=== PATIENT | female | born 1975 | race Caucasian/White ===

== ENCOUNTER 2021-03-07 12:39 | Emergency (ER) | payer MEDICAID, SELFPAY ==
--- NOTE | 2021-03-07 12:54 | XR_ITS ---
PROCEDURE INFORMATION: Exam: XR Right Knee Exam date and time: 03/07/2021 12:54 PM Age: 46 years old Clinical indication: Pain; Knee; Right TECHNIQUE: Imaging protocol: XR Right knee. Views: 3 views. COMPARISON: No relevant prior studies available. FINDINGS: Bones/joints: There are mild degenerative changes of the knee joint, predominantly involving the medial joint compartment. There is no evidence of acute fracture. There is no evidence of joint malalignment or dislocation. Cystic changes present within the lateral aspect of the proximal tibia. Soft tissues: There are no soft tissue masses or fluid collections. IMPRESSION: 1. There are mild degenerative changes of the knee joint, predominantly involving the medial joint compartment. 2. No evidence of acute fracture. 3. No evidence of acute dislocation.
[2021-03-07 13:35] VITALS: BP 123/60; PULSE 85; RESP 19; TEMP 36.8; O2SAT 98; BMI 47.5
--- NOTE | 2021-03-07 14:01 | HMH.EDUTC ---
[facility] Disposition Clinical Impression: Knee sprain Qualifiers: Encounter type: initial encounter Involved ligament of knee: unspecified ligament Laterality: right Qualified Code(s): S83.91XA - Sprain of unspecified site of right knee, initial encounter Disposition: Home, Self-Care Condition on Discharge: Good Instructions: DI for Knee Pain, DI for Knee Sprain, How to Use Crutches Additional Instructions: *weight bearing as tolerated *RICE, Rest the extremity, Ice 15-20 minutes 3-4 times daily, Compress- wear the sarthak wrap as discussed as much as possible to help reduce swelling and pain, Elevate the extremity when at rest *Sarthak wrap is for support and help control swelling, use it except in the shower. Be sure that is not to tight but not to loose either *Elevate when resting *Ibuprofen 600-800mg every 6-8 hours as needed for pain an inflammation. If need something more can take Tylenol in between doses of Ibuprofen to help Immediately follow up with your family doctor for new or worsening of symptoms, or no noticeable improvement over the next 3-5 days Follow up with your Orthopedic Physician for further evaluation Follow up with your Family Doctor if no improvement Prescriptions: Etodolac 200 mg PO Q8HP PRN #12 cap PRN Reason: Moderate Pain Transmission Status: Pending to [facility] #[id number] Referrals: Provider,Referral, [Primary Care Provider] - As needed Time of Disposition: 14:25 Medical Decision Making - Jarad Inquiry Pt receiving controlled substance: No Jarad was queried for this patient: No Vital Signs: 03/07/21 13:35 Temperature 98.2 F Temperature Source Oral Pulse Rate [Right Brachial] 85 Respiratory Rate 19 Blood Pressure [Right Arm] 123/60 Blood Pressure Mean [Right Arm] 81 Blood Pressure Source [Right Arm] Automatic Cuff Blood Pressure Position [Right Arm] Sitting 02 Sat by Pulse Oximetry 98 Oxygen Delivery Method Room Air Orders (Tests/Meds): ORDERS Category Date Time Status XR knee RT 3V Stat Exams 03/07/21 12:54 Taken - Radiology Data #1 Image(s): Knee Image Reviewed: Yes I reviewed the patient's radiology image w/the ED provider Preliminary Findings: No Fracture Seen Discussed with ED physician no acute appears chronic Medical Decision Narrative: Patient states that she has knee immobilizer at home and crutches States that she feels like she pulled something [facility] HPI - General Stated complaint: pain in right knee Time Seen by Provider: 03/07/21 14:01 Mode of Arrival: Ambulatory Source of Information: Patient Limitations: No Limitations Description of Symptoms (Recalled from Triage Doc. by RN): PATIENT C/O RIGHT KNEE PAIN X 2 DAYS. STATES SHE THINKS SHE PULLED SOMETHING WALKING UP STAIRS HEENT Symptoms (Recalled from RN notes): No Resp Symptoms (Recalled from RN notes): No Skin Symptoms (Recalled from RN notes): No MS Symptoms (Recalled from RN notes): No Functional Status (Recalled from RN notes): WNL - History of Present Illness Provider Complaint: Patient states that she has been seeing Orthopedics and was told that she would have to have knee replacement in the next year or so States that she was walking on stairs a couple days ago and she twisted her knee States that ever since she has been having pain in the side of her knee and calf area like she is having charley horse and hurts when she walks States that she wasnt sure if she may have messed something up - Related Data Home Medications Medication Instructions Recorded Confirmed Buprenorphine HCl/Naloxone HCl 1.5 tab SL DAILY 03/07/21 03/07/21 [Suboxone 8mg/2mg ODT] Escitalopram Oxalate [Lexapro] 10 mg PO DAILY 03/07/21 03/07/21 Furosemide [Lasix 40mg tab] 40 mg PO DAILY 03/07/21 03/07/21 Previous Rx's Medication Instructions Recorded Etodolac 200 mg PO Q8HP PRN #12 cap 03/07/21 Allergies Allergy/AdvReac Type Severity Reaction Status Date / Time duloxetine [From
[2021-03-07 14:28] VITALS: BP 123/60; PULSE 85; RESP 19; TEMP 36.8; O2SAT 98
== END 2021-03-07 14:32 | disposition home or self-care (01) ==
PROVIDERS: Emergency Provider Nurse Practitioner
DX: S83.91XA Sprain of unspecified site of right knee, initial encounter (principal); X50.1XXA Overexertion from prolonged static or awkward postures, initial encounter
CPT/HCPCS: 73562; 99202; G0463

== ENCOUNTER 2022-10-27 19:15 | Emergency (ER) | payer MEDICAID, SELFPAY ==
[2022-10-27 19:28] VITALS: BP 106/57; PULSE 102; RESP 18; TEMP 36.6; O2SAT 90; BMI 46.3
[2022-10-27 19:30] VITALS: BP 106/57; PULSE 109; O2SAT 90
[2022-10-27 19:31] VITALS: BMI 33.6
[2022-10-27 19:56] LABS: Chloride 94 mmol/L (98-107)
[2022-10-27 19:57] LABS: Sodium 133 mmol/L (136-145)
[2022-10-27 19:58] LABS: Basophils # 0.1 K/mm3 (0-0.2); Basophils % 1.4 % (0.1-2.0); Eosinophils % 0.3 % (0.1-12.0); Hematocrit 50.9 % (37.0-47.0); Hemoglobin 17.1 g/dL (12.2-16.2); Lymphocytes # 2.5 K/mm3 (0.7-4.5); Mean Corpuscular HGB Conc 33.6 g/dL (31.8-35.4); Mean Corpuscular Hemoglobin 28.8 pg (27.0-31.2); Mean Corpuscular Volume 85.7 fl (81-99); Mean Platelet Volume 8.1 fl (7.4-10.4); Monocytes # 0.3 K/mm3 (0.1-1.0); Neutrophils # 7.5 K/mm3 (1.8-7.8); Neutrophils % 71.4 % (37.0-80.0); Platelet Count 480 K/mm3 (142-424); Red Blood Count 5.93 M/mm3 (4.20-5.40); Red Cell Distribution Width 15.2 % (11.5-17.5); White Blood Count 10.4 K/mm3 (4.8-10.8)
[2022-10-27 19:59] LABS: Amylase 44 U/L (30-110); Blood Urea Nitrogen 15 mg/dl (7-17); Creatinine Clearance Estimated 117 mL/min (50-200); Estimated Glomerular Filt Rate 78 ml/min (>60); GFR (African American) 94 ML/MIN (>60)
[2022-10-27 20:00] VITALS: BP 129/76; PULSE 89; O2SAT 91
[2022-10-27 20:00] LABS: Alanine Aminotransferase 52 U/L (12-78); Albumin Level 4.3 g/dl (3.5-5.0); Albumin/Globulin Ratio 1.3 (1.1-1.8); Alkaline Phosphatase 91 U/L (38-126); Anion Gap 13.9 mEq/L (5-15); Aspartate Amino Transferase 72 U/L (14-36); Bilirubin,Total 0.6 mg/dl (0.2-1.3); Calcium 8.4 mg/dl (8.4-10.2); Carbon Dioxide 28 mmol/L (22.0-30.0); Globulin 3.4 g/dL (1.3-3.2); Glucose 183 mg/dl (74-100); Lipase 38 U/L (23-300); Total Protein,Serum 7.7 g/dl (6.3-8.2)
[2022-10-27 20:01] LABS: Potassium 2.9 mmoL/L (3.5-5.1)
--- NOTE | 2022-10-27 20:01 | PC.NURSE ---
Dr. Quesada notified of critical potassium
--- NOTE | 2022-10-27 20:20 | PC.NURSE ---
Pt provided with ice water
--- NOTE | 2022-10-27 20:21 | HMH.EDALLER ---
Discharge Plan Disposition Patient Disposition: Home, Self-Care Chief Complaint: Allergic Reaction Prescriptions Prescriptions: No Action ondansetron 4 mg tablet,disintegrating 4 mg PO Q4HP PRN (Reason: Nausea) furosemide 40 MG tablet 40 mg PO DAILY escitalopram oxalate 10 MG tablet 10 mg PO DAILY buprenorphine-naloxone 1 EACH tablet, sublingual 1.5 tab SL DAILY ibuprofen 600 MG tablet 600 mg PO Q6HP PRN (Reason: Moderate Pain) Qty: 20 0RF Referrals Follow up/Referrals: Aisha Weber [Primary Care Provider] - See instructions Clinical Impressions Clinical Impression: Allergic reaction, Urticaria Instructions Patient Instructions: DI for General Allergic Reactions Discharge ED Provider: Sangita (ED)Terence Allergic React/Insect Bite HPI General Chief complaint: Allergic Reaction Stated complaint: Allergic Reaction Time Seen by Provider: 10/27/22 20:05 Mode of Arrival - ED Triage: EMS Source of Information: Patient, EMS and Medical Record Limitations: No Limitations History of Present Illness HPI narrative: this wf with gb surg at [facility] and released at 10 am and dev feet burning and itchy and then hive at 1800 after motrin - gave herself epi pen and called 911 - no meds per squad and no tongue swelling or breathing issues complaint: allergic reaction Onset (ago): hour(s) Exposure: other (uncertain - occurred after motrin but had surg today) Symptoms: rash and itching Treatment prior to arrival: epinephrine Allergies Allergy/AdvReac Type Severity Reaction Status Date / Time duloxetine [From Cymbalta] Allergy Verified 03/07/21 13:42 Previous Allergic Reaction History: other (hives ) Severity: moderate Related Data Home Medications Medication Instructions Recorded Confirmed buprenorphine 8 mg-naloxone 2 mg 1.5 tab SL DAILY ADDICTION 03/07/21 10/27/22 sublingual tablet escitalopram oxalate 10 mg tablet 10 mg PO DAILY Depression 03/07/21 10/27/22 furosemide 40 mg tablet 40 mg PO DAILY Fluid 03/07/21 10/27/22 ondansetron 4 mg disintegrating 4 mg PO Q4HP PRN Nausea 10/27/22 10/27/22 tablet Previous Rx's Medication Instructions Recorded ibuprofen 600 mg tablet 600 mg PO Q6HP PRN Moderate Pain 03/10/21 #20 tabs PFSH PFSH Disclaimer: The information contained in this section may have been updated after the patient was seen, as this information can be updated by other users. Social History Smoking Status: Current every day smoker alcohol intake: never current occupational status: other Travel in the last 8 weeks: None ROS Obtained: Yes All systems reviewed & no additional complaints except as documented Physical Exam General General appearance: alert and in no apparent distress Head Head exam: normocephalic Eye Eye exam: Present PERRL and EOMI ENT ENT exam: Present normal oropharynx Neck Neck exam: Present trachea midline Respiratory Respiratory exam: Present normal lung sounds bilaterally; Absent respiratory distress Cardiovascular Cardiovascular exam: Present regular rate Extremities Exam Extremities exam: Absent calf tenderness Neurological Exam Neurological exam: Present alert, oriented X3 and CN II-XII intact; Absent motor sensory deficit Psychiatric Psychiatric exam: Present normal affect Skin Skin exam: Present rash Medical Decision Making Medical Records Medical records reviewed: Yes I reviewed the patient's medical records. Jarad Inquiry Pt receiving controlled substance: No Vital Signs: 10/27/22 19:28 Temperature 98 F Temperature Source Oral Pulse Rate [Apical] 102 H Respiratory Rate 18 Blood Pressure [Right Arm] 106/57 L Blood Pressure Mean [Right Arm] 73 Blood Pressure Source [Right Arm] Automatic Cuff Blood Pressure Position [Right Arm] Sitting 02 Sat by Pulse Oximetry 90 L Oxygen Delivery Method Room Air Lab Data Lab results reviewed: Yes I reviewed the patient's lab results. Lab
[2022-10-27 20:30] VITALS: BP 118/62; PULSE 95; O2SAT 91
[2022-10-27 21:01] VITALS: BP 120/63; PULSE 92; RESP 18; TEMP 36.6; O2SAT 92
== END 2022-10-27 21:04 | disposition home or self-care (01) ==
PROVIDERS: Emergency Provider Emergency Medicine; PCP Nurse Practitioner Family
DX: T39.395A Adverse effect of other nonsteroidal anti-inflammatory drugs [NSAID], initial encounter (principal); L50.0 Allergic urticaria; F17.200 Nicotine dependence, unspecified, uncomplicated
CPT/HCPCS: 80053; 82150; 83690; 85025; 96361; 96374; 96375; 99284; 99285

== ENCOUNTER 2022-10-30 14:05 | Emergency (ER) | payer MEDICAID, SELFPAY ==
[2022-10-30 14:14] VITALS: BMI 43.0
--- NOTE | 2022-10-30 14:15 | CT_ITS ---
PROCEDURE INFORMATION: Exam: CT Abdomen And Pelvis With Contrast Exam date and time: 10/30/2022 2:51 PM Age: 47 years old Clinical indication: Abdominal pain; Generalized; Prior surgery; Surgery date: 3-7 days post-operative; Surgery type: Had gallbladder surgery 10/27/22- extreme pain started today; Additional info: Abd pain TECHNIQUE: Imaging protocol: Computed tomography of the abdomen and pelvis with contrast. Radiation optimization: All CT scans at this facility use at least one of these dose optimization techniques: automated exposure control; mA and/or kV adjustment per patient size (includes targeted exams where dose is matched to clinical indication); or iterative reconstruction. Contrast material: ISOVUE; Contrast volume: 75 ml; Contrast route: IV; REPORTING DATA: Count of CT and Cardiac NM exams in prior 12 months: This patient has received 0 known CTs and 0 known cardiac nuclear medicine studies in the 12 months prior to the current study. COMPARISON: No relevant prior studies available. FINDINGS: Liver: Normal. No mass. Gallbladder and bile ducts: Postoperative changes status post cholecystectomy. Small complex fluid collection within gallbladder fossa. Pancreas: Normal. No ductal dilation. Spleen: Normal. No splenomegaly. Adrenal glands: Normal. No mass. Kidneys and ureters: Normal. No hydronephrosis. Stomach and bowel: Unremarkable. No obstruction. No mucosal thickening. Appendix: No evidence of appendicitis. Intraperitoneal space: Unremarkable. No free air. No significant fluid collection. Vasculature: Unremarkable. No abdominal aortic aneurysm. Lymph nodes: Unremarkable. No enlarged lymph nodes. Urinary bladder: Unremarkable as visualized. Reproductive: Unremarkable as visualized. Bones/joints: Unremarkable. No acute fracture. Soft tissues: Unremarkable. IMPRESSION: Likely postoperative changes with small residual fluid collection gallbladder fossa. If symptoms worsened consider repeat scan to rule out bile leak.
[2022-10-30 14:22] VITALS: BP 172/98; PULSE 99; RESP 16; TEMP 36.5; O2SAT 98; BMI 43.0
[2022-10-30 14:28] LABS: Basophils # 0.1 K/mm3 (0-0.2); Basophils % 0.9 % (0.1-2.0); Eosinophils # 0.2 K/mm3 (0.0-0.4); Eosinophils % 1.3 % (0.1-12.0); Hematocrit 42.9 % (37.0-47.0); Hemoglobin 14.2 g/dL (12.2-16.2); Lymphocytes % 22.6 % (10-50); Mean Corpuscular HGB Conc 33.2 g/dL (31.8-35.4); Mean Corpuscular Hemoglobin 28.1 pg (27.0-31.2); Mean Corpuscular Volume 84.7 fl (81-99); Mean Platelet Volume 8.1 fl (7.4-10.4); Monocytes # 0.8 K/mm3 (0.1-1.0); Monocytes % 6.3 % (1.7-9.3); Neutrophils # 9.3 K/mm3 (1.8-7.8); Neutrophils % 68.9 % (37.0-80.0); Platelet Count 298 K/mm3 (142-424); Red Blood Count 5.06 M/mm3 (4.20-5.40); White Blood Count 13.4 K/mm3 (4.8-10.8)
[2022-10-30 14:31] VITALS: BP 132/92; PULSE 86; RESP 20; O2SAT 95
[2022-10-30 14:31] LABS: Alanine Aminotransferase 37 U/L (12-78); Albumin Level 4.2 g/dl (3.5-5.0); Albumin/Globulin Ratio 1.4 (1.1-1.8); Alkaline Phosphatase 86 U/L (38-126); Aspartate Amino Transferase 33 U/L (14-36); Bilirubin,Total 0.8 mg/dl (0.2-1.3); Blood Urea Nitrogen 13 mg/dl (7-17); Calcium 8.9 mg/dl (8.4-10.2); Carbon Dioxide 36 mmol/L (22.0-30.0); Chloride 95 mmol/L (98-107); Creatinine Clearance Estimated 94 mL/min (50-200); Estimated Glomerular Filt Rate 108 ml/min (>60); GFR (African American) 131 ML/MIN (>60); Glucose 125 mg/dl (74-100); Lipase 29 U/L (23-300); Sodium 134 mmol/L (136-145); Total Protein,Serum 7.2 g/dl (6.3-8.2)
--- NOTE | 2022-10-30 14:31 | HMH.EDGENADL ---
Discharge Plan Disposition Condition: Fair Chief Complaint: Abdominal Pain Prescriptions Prescriptions: No Action ondansetron 4 mg tablet,disintegrating 4 mg PO Q4HP PRN (Reason: Nausea) furosemide 40 MG tablet 40 mg PO DAILY escitalopram oxalate 10 MG tablet 10 mg PO DAILY buprenorphine-naloxone 1 EACH tablet, sublingual 1.5 tab SL DAILY ibuprofen 600 MG tablet 600 mg PO Q6HP PRN (Reason: Moderate Pain) Qty: 20 0RF Referrals Follow up/Referrals: Aisha Weber [Primary Care Provider] - See instructions Clinical Impressions Clinical Impression: Acute epigastric pain, Acute hypokalemia Discharge ED Provider: Damon Leon General Adult HPI General Chief complaint: Abdominal Pain Stated complaint: abd pain post op [id number] Time Seen by Provider: 10/30/22 14:25 Mode of Arrival: Ambulatory Source of Information: Patient and Spouse Limitations: No Limitations Description of Symptoms (Recalled from ER Triage Doc. by RN): pt comes in with post op pain complaints. pt had gallbladder removed 10/27. pt reports that the pain began this am. pt took 2 gas pills and a shot of pepto at home with no relief. pt reports little gas and no bm since surgery. History of Present Illness HPI narrative: The patient is status post cholecystectomy performed at [facility] on 10/27/2022, Dr. Diaz. She had been doing well until today. Complains of epigastric pain. She describes the pain as pressure in her mid epigastrium that has been present since she awakened this morning. It has been steadily worsening throughout the day. She has not eaten today. Denies vomiting. She had a small bowel movement yesterday, no diarrhea. She had a small bowel movement yesterday. No fever. No chest pain or shortness of breath. She is on Suboxone, but states she has not taken any since her surgery because she has been afraid to take it. She is not on any other pain medication. Related Data Home Medications Medication Instructions Recorded Confirmed buprenorphine 8 mg-naloxone 2 mg 1.5 tab SL DAILY ADDICTION 03/07/21 10/27/22 sublingual tablet escitalopram oxalate 10 mg tablet 10 mg PO DAILY Depression 03/07/21 10/27/22 furosemide 40 mg tablet 40 mg PO DAILY Fluid 03/07/21 10/27/22 ondansetron 4 mg disintegrating 4 mg PO Q4HP PRN Nausea 10/27/22 10/27/22 tablet Previous Rx's Medication Instructions Recorded ibuprofen 600 mg tablet 600 mg PO Q6HP PRN Moderate Pain 03/10/21 #20 tabs Allergies Allergy/AdvReac Type Severity Reaction Status Date / Time duloxetine [From Cymbalta] Allergy Verified 03/07/21 13:42 [facility] Disclaimer: The information contained in this section may have been updated after the patient was seen, as this information can be updated by other users. Social History Smoking Status: Current every day smoker alcohol intake: never current occupational status: other Travel in the last 8 weeks: None ROS Obtained: Yes Systems reviewed as appropriate & no additional complaints except as documented Constitutional Constitutional: Denies fever(s), Denies headache(s) and Denies weakness ENT Ears, Nose, Mouth, and Throat: Denies headache(s), Denies nasal discharge and Denies sore throat Cardiovascular Cardiovascular: Denies chest pain Respiratory Respiratory: Denies shortness of breath and Denies cough Gastrointestinal Gastrointestingal: Reports abdominal pain; Denies constipation, diarrhea or vomiting Genitourinary Female Genitourinary: Denies difficulty voiding, Denies dysuria and Denies flank pain Musculoskeletal Musculoskeletal: Denies numbness Neurologic Neurologic: Denies headache(s), Denies numbness and Denies weakness Physical Exam General General appearance: alert Comment: Sitting upright in a chair, states she cannot get into the bed for examination due to her pain. Appears uncomfortable, softly moaning. Head Head exam: atraumatic and normoc
--- NOTE | 2022-10-30 14:54 | PC.NURSE ---
arrived back to room from radiology
--- NOTE | 2022-10-30 15:01 | ECG_ITS ---
APPROVED REPORT Exam: Resting ECG HR:89 bpm ECG Measurements Heart Rate 89 AXES IL 170 P 71 QRSd 95 QRS 67 QT 351 T 54 QTc 398 Conclusion SINUS RHYTHM NORMAL ECG UNCONFIRMED REPORT Electronically signed by : Rick Cisse MD 10/30/2022 21:06:20
[2022-10-30 15:03] VITALS: BP 151/119; PULSE 83; RESP 19; O2SAT 96
--- NOTE | 2022-10-30 15:05 | PC.NURSE ---
checked on pt states her hip down to her feet hurting, adjusted bed to see if it could make her anymore comfortable, call light at bedside
--- NOTE | 2022-10-30 15:09 | PC.NURSE ---
took ekg, patient wasnt able to tolerate laying in bed, got back up to chair,nurse notified but she already gave pain med, @ bs
[2022-10-30 15:22] LABS: Troponin I < 0.01 ng/ml (0.00-0.034)
--- NOTE | 2022-10-30 15:35 | PC.NURSE ---
has been paged from Psych[facility]
--- NOTE | 2022-10-30 15:41 | PC.NURSE ---
on the phone with from [facility]
--- NOTE | 2022-10-30 15:57 | PC.NURSE ---
pt pacing floor complaing hurting again after second dose of pain med, notified nurses in ed, waiting to speak to er md(in a pt room)
--- NOTE | 2022-10-30 16:02 | PC.NURSE ---
calling to [facility] to speak to hospitalist about transferring pt
--- NOTE | 2022-10-30 16:13 | PC.NURSE ---
quiana myles @ bedside getting covid swab for pt incase of transfer
--- NOTE | 2022-10-30 16:30 | PC.NURSE ---
india asencio speaking to [facility] hospitalist
[2022-10-30 16:39] LABS: Coronavirus 19, PCR Not Detected (NotDetected); Influenza A, PCR Not Detected (NotDetected); Influenza B, PCR Not Detected (NotDetected)
--- NOTE | 2022-10-30 17:13 | PC.NURSE ---
pt has been accepted to [facility] she will be going to room # 4a
--- NOTE | 2022-10-30 17:20 | PC.NURSE ---
report called to shazia medina jorge a
[2022-10-30 17:30] VITALS: BP 130/87; PULSE 83; RESP 19; TEMP 36.5; O2SAT 96
== END 2022-10-30 17:35 | disposition home or self-care (01) ==
PROVIDERS: Emergency Provider Emergency Medicine; PCP Nurse Practitioner Family
DX: R10.13 Epigastric pain (principal); E87.6 Hypokalemia; F17.210 Nicotine dependence, cigarettes, uncomplicated
CPT/HCPCS: 74177; 80053; 83690; 84484; 85025; 93005; 96374; 96375; 96376; 99285; C9803; J2405; Q9967; U0003; U0005

== ENCOUNTER 2023-09-03 20:47 | Emergency (ER) | payer MEDICAID, SELFPAY ==
--- NOTE | 2023-09-03 20:50 | ED_ITS ---
Discharge Plan Disposition Patient Disposition: Home, Self-Care Condition: Good Prescriptions Prescriptions: New ondansetron 4 mg tablet,disintegrating 4 mg PO Q8H PRN (Reason: nausea and vomiting) 4 Days Qty: 12 0RF [id number] [Bromfed DM] 2-30-10 mg/5 mL syrup 5 ml PO Q6H PRN (Reason: cold symptoms) Qty: 118 0RF No Action ondansetron 4 mg tablet,disintegrating 4 mg PO Q4HP PRN (Reason: Nausea) furosemide 40 MG tablet 40 mg PO DAILY escitalopram oxalate 10 MG tablet 10 mg PO DAILY buprenorphine-naloxone 1 EACH tablet, sublingual 1.5 tab SL DAILY ibuprofen 600 MG tablet 600 mg PO Q6HP PRN (Reason: Moderate Pain) Qty: 20 0RF Referrals Follow up/Referrals: Aisha Weber [Primary Care Provider] - See instructions Activity Restrictions/Add. Instructions Additional Instructions/Restrictions: You were evaluated in the emergency department today. Please take Tylenol and ibuprofen every 4-6 hours as needed for pain and fever. occupational health technician your prescription for Zofran and take as needed for nausea and vomiting. Follow-up with your primary care provider over the next 3 days for reassessment of your potassium. Ensure that you are staying hydrated. Return to the emergency department for new or worsening symptoms. Clinical Impressions Clinical Impression: Influenza A, Acute hypokalemia, Headache, Hypocalcemia Stand Alone Forms Stand Alone Forms: Work/School Release Instructions Patient Instructions: DI for Influenza -- Adult, DI for Hypokalemia Discharge ED Provider: Jacky Partida General Adult HPI <Jacky Partida MD - Last Filed: 09/03/23 23:32> General Chief complaint: Shortness of Breath/Dyspnea Stated complaint: headache, cough, soa Time Seen by Provider: 09/03/23 20:49 History of Present Illness HPI narrative: 48-year-old female, history of anxiety, obesity, presents with multiple complaints. She reports that she has shortness of breath and cough with rib pain with coughing. She denies any significant chest pain. She reports that she also has headache and feels achy all over. Related Data Home Medications Medication Instructions Recorded Confirmed buprenorphine 8 mg-naloxone 2 mg 1.5 tab SL DAILY ADDICTION 03/07/21 10/27/22 sublingual tablet escitalopram oxalate 10 mg tablet 10 mg PO DAILY Depression 03/07/21 10/27/22 furosemide 40 mg tablet 40 mg PO DAILY Fluid 03/07/21 10/27/22 ondansetron 4 mg disintegrating 4 mg PO Q4HP PRN Nausea 10/27/22 10/27/22 tablet Previous Rx's Medication Instructions Recorded ibuprofen 600 mg tablet 600 mg PO Q6HP PRN Moderate Pain 03/10/21 #20 tabs zeocrhdeairzckq-cqdovslqjnquwci-KJ 5 ml PO Q6H PRN cold symptoms #118 09/04/23 2 mg-30 mg-10 mg/5 mL oral syrup mL (Bromfed DM) ondansetron 4 mg disintegrating 4 mg PO Q8H PRN nausea and 09/04/23 tablet vomiting 4 days #12 tabs Allergies Allergy/AdvReac Type Severity Reaction Status Date / Time duloxetine [From Cymbalta] Allergy Verified 09/03/23 21:23 [facility] <Jacky Partida MD - Last Filed: 09/03/23 23:32> [facility] Disclaimer: The information contained in this section may have been updated after the patient was seen, as this information can be updated by other users. Social History Smoking Status: Current every day smoker alcohol intake: never current occupational status: other Travel in the last 8 weeks: None <Jacky Partida MD - Last Filed: 09/03/23 23:32> ROS Obtained: Yes All systems reviewed & no additional complaints except as documented Physical Exam <Jacky Partida MD - Last Filed: 09/03/23 23:32> General General appearance: alert and in no apparent distress Head Head exam: atraumatic and normocephalic Eye Eye exam: Present normal appearance, PERRL and EOMI ENT ENT exam: Present normal oropharynx and normal external ear exam Neck Neck exam: Present normal inspection and full ROM Chest Chest inspection: Present normal inspection, symmetric chest wall rise and tenderness (Right chest wall) Respiratory Respiratory exam: Present normal lung sounds bilaterally; Absent respiratory distress or wheezes Cardiovascular Cardiovascular exam: Present regular rate and normal rhythm Abdominal Exam Abdominal exam: Present soft; Absent distention, tenderness or guarding Extremities Exam Extremities exam: Present normal inspection; Absent edema or joint swelling Back Exam Back exam: Present normal inspection; Absent tenderness Neurological Exam Neurological exam: Present alert and oriented X3; Absent motor sensory deficit Psychiatric Psychiatric exam: Present normal affect and normal mood Skin Skin exam: Present warm, dry and normal color Lymphatic Lymphatic Findings: no adenopathy Medical Decision Making <Jacky Partida MD - Last Filed: 09/03/23 23:32> Medical Records Medical records reviewed: Yes I reviewed the patient's medical records. Jarad Inquiry Pt receiving controlled substance: No Jarad was queried for this patient: No Vital Signs: 09/03/23 21:02 09/03/23 22:01 09/03/23 23:01 Temperature 98.5 F Temperature Source Oral Pulse Rate 89 71 Pulse Rate [Left] 88 Respiratory Rate 18 Blood Pressure 127/76 Blood Pressure [Right Arm] 178/99 H Blood Pressure Mean Blood Pressure Mean [Right Arm] 125 Blood Pressure Source [Right Arm] Automatic Cuff Blood Pressure Position [Right Arm] Sitting 02 Sat by Pulse Oximetry 95 95 95 Oxygen Delivery Method Room Air 09/03/23 23:47 09/04/23 00:00 09/04/23 00:55 Temperature 98.5 F Temperature Source Oral Pulse Rate 75 72 Pulse Rate [Left] Respiratory Rate 18 20 18 Blood Pressure 150/89 H 127/96 H 124/72 Blood Pressure [Right Arm] Blood Pressure Mean 100 Blood Pressure Mean [Right Arm] Blood Pressure Source [Right Arm] Blood Pressure Position [Right Arm] 02 Sat by Pulse Oximetry 95 95 Oxygen Delivery Method Room Air Lab Data Lab results reviewed: Yes I reviewed the patient's lab results. Lab Results 09/03/23 21:06: WBC 4.0 L, RBC 4.71, Hgb 14.1, Hct 42.1, MCV 89.4, MCH 30.0, MCHC 33.6, RDW 14.9, Plt Count 199, MPV 8.2, Neut % (Auto) 75.6, Lymph % (Auto) 12.0, [place] % (Auto) 10.0 H, Eos % (Auto) 0.5, Baso % (Auto) 1.8, Neut # (Auto) 3.0, Lymph # (Auto) 0.5 L, [place] # (Auto) 0.4, Eos # (Auto) 0.0, Baso # (Auto) 0.1, Sodium 134 L, Potassium 2.8 L*, Chloride 100, Carbon Dioxide 27, Anion Gap 9.8, BUN 4 L, Creatinine 0.50 L, Estimated Creat Clear 111, Estimated GFR 133, Est GFR ( Amer) 161, Glucose 103 H, Calcium 8.0 L, Magnesium 1.9, Total Bilirubin 0.4, AST 29, ALT 25, Alkaline Phosphatase 88, Troponin I < 0.01, Total Protein 6.4, Albumin 3.7, Globulin 2.7, Albumin/Globulin Ratio 1.4 09/03/23 21:14: SARS-CoV-2 (PCR) Not detected, Influenza A Untype (PCR) Detected A, Influenza Type B (PCR) Not detected 09/03/23 21:06 09/03/23 21:06 Orders (Tests/Meds): ED MEDICATIONS Discontinued Medications Generic Name Dose Route Start Last Admin Trade Name Freq PRN Reason Stop Dose Admin Acetaminophen 1,000 mg 09/03/23 21:31 09/03/23 21:44 Acetaminophen 500mg Tab PO 09/03/23 21:32 1,000 mg ONCE ONE Administration Diphenhydramine HCl 25 mg 09/03/23 21:31 09/03/23 21:43 Diphenhydramine 50mg/Ml Vial IV 09/03/23 21:32 25 mg ONCE ONE Administration Sodium Chloride 1,000 mls @ 999 mls/hr 09/03/23 21:30 09/03/23 21:44 Sod Chlor 0.9% 1000ml Bag IV 09/03/23 22:30 999 mls/hr .Q1H1M EDUARDO Administration Potassium Chloride/Water 100 mls @ 100 mls/hr 09/03/23 21:49 09/04/23 00:04 Potassium Chloride 10meq/100ml Ivpb IV 09/03/23 23:48 100 mls/hr Q1H EDUARDO Administration Sodium Chloride 1,000 mls @ 999 mls/hr 09/03/23 21:51 Sod Chlor 0.9% 1000ml Bag IV 09/03/23 22:51 .Q1H1M ONE Potassium Chloride 40 meq 09/03/23 21:49 09/03/23 21:55 Potassium Chloride 20meq Tab PO 09/03/23 21:50 40 meq ONCE ONE Administration Prochlorperazine Edisylate 10 mg 09/03/23 21:29 09/03/23 21:43 Prochlorperazine 10mg/2ml Vial IV 09/03/23 21:30 10 mg ONCE ONE Administration ORDERS Category Date Time Status CXR --portable [XR chest portable] Stat Exams 09/03/23 21:31 Completed CBC w/Auto Diff [Complete Blood Count Auto Diff] Stat Lab 09/03/23 21:06 Completed CMP [Comprehensive Metabolic Panel] Stat Lab 09/03/23 21:06 Completed MAG [Magnesium] Stat Lab 09/03/23 21:06 Completed Rapid PCR Covid and Flu A/B Stat Lab 09/03/23 21:14 Completed Troponin I Q3H Lab 09/03/23 21:06 Completed Troponin I Q3H Lab 09/04/23 00:45 Ordered EKG Request [ECG Request] Stat Y 09/03/23 21:32 Ordered Medical Decision Narrative: 48-year-old female presents with cough, shortness of breath, headache, flulike illness.. History was obtained via conversation with patient, chart review. On arrival, patient is [afebrile, hemodynamically stable, satting appropriately, alert, oriented x4, GCS 15], moving all extremities spontaneously. Full physical exam performed and significant for clear lungs bilaterally, chest wall tenderness. Differential includes but is not limited to COVID, flu, pneumonia, PE, musculoskeletal chest pain, ACS. Patient was given migraine cocktail including IV medications and monitor fluid bolus for symptomatic management and correction of underlying abnormalities. Workup initiated including CBC CMP mag troponin EKG and COVID flu swab. Patient is PERC negative and does not need D-dimer. On re-evaluation, patient [remains afebrile, HD stable.] Laboratory workup independently interpreted by me and significant for hypokalemia potassium 2.8. Normal magnesium, mild hypocalcemia noted as well. Patient is flu a positive. Initial troponin undetectable. Single troponin is although will be needed.. Imaging independently interpreted by me and significant for left basilar atelectasis.. See radiology read for full review of final results. EKG independently interpreted by me and significant for sinus rhythm, rate of 93, no concerning ST or T wave changes. At 2150 patient was placed in observation status for continued cardiac monitori ng while receiving IV and p.o. potassium repletion given severe hypokalemia. 40 mill equivalents p.o. and 20 meq IV repletion ordered. At this time care handed off to oncoming physician pending potassium repletion. <Irma Tracey Joy, DO - Last Filed: 09/04/23 01:02> Vital Signs: 09/03/23 21:02 09/03/23 22:01 09/03/23 23:01 Temperature 98.5 F Temperature Source Oral Pulse Rate 89 71 Pulse Rate [Left] 88 Respiratory Rate 18 Blood Pressure 127/76 Blood Pressure [Right Arm] 178/99 H Blood Pressure Mean Blood Pressure Mean [Right Arm] 125 Blood Pressure Source [Right Arm] Automatic Cuff Blood Pressure Position [Right Arm] Sitting 02 Sat by Pulse Oximetry 95 95 95 Oxygen Delivery Method Room Air 09/03/23 23:47 09/04/23 00:00 09/04/23 00:55 Temperature 98.5 F Temperature Source Oral Pulse Rate 75 72 Pulse Rate [Left] Respiratory Rate 18 20 18 Blood Pressure 150/89 H 127/96 H 124/72 Blood Pressure [Right Arm] Blood Pressure Mean 100 Blood Pressure Mean [Right Arm] Blood Pressure Source [Right Arm] Blood Pressure Position [Right Arm] 02 Sat by Pulse Oximetry 95 95 Oxygen Delivery Method Room Air Lab Data Lab Results 09/03/23 21:06: WBC 4.0 L, RBC 4.71, Hgb 14.1, Hct 42.1, MCV 89.4, MCH 30.0, MCHC 33.6, RDW 14.9, Plt Count 199, MPV 8.2, Neut % (Auto) 75.6, Lymph % (Auto) 12.0, [place] % (Auto) 10.0 H, Eos % (Auto) 0.5, Baso % (Auto) 1.8, Neut # (Auto) 3.0, Lymph # (Auto) 0.5 L, [place] # (Auto) 0.4, Eos # (Auto) 0.0, Baso # (Auto) 0.1, Sodium 134 L, Potassium 2.8 L*, Chloride 100, Carbon Dioxide 27, Anion Gap 9.8, BUN 4 L, Creatinine 0.50 L, Estimated Creat Clear 111, Estimated GFR 133, Est GFR ( Amer) 161, Glucose 103 H, Calcium 8.0 L, Magnesium 1.9, Total Bilirubin 0.4, AST 29, ALT 25, Alkaline Phosphatase 88, Troponin I < 0.01, Total Protein 6.4, Albumin 3.7, Globulin 2.7, Albumin/Globulin Ratio 1.4 09/03/23 21:14: SARS-CoV-2 (PCR) Not detected, Influenza A Untype (PCR) Detected A, Influenza Type B (PCR) Not detected Orders (Tests/Meds): ED MEDICATIONS Discontinued Medications Generic Name Dose Route Start Last Admin Trade Name Freq PRN Reason Stop Dose Admin Acetaminophen 1,000 mg 09/03/23 21:31 09/03/23 21:44 Acetaminophen 500mg Tab PO 09/03/23 21:32 1,000 mg ONCE ONE Administration Diphenhydramine HCl 25 mg 09/03/23 21:31 09/03/23 21:43 Diphenhydramine 50mg/Ml Vial IV 09/03/23 21:32 25 mg ONCE ONE Administration Sodium Chloride 1,000 mls @ 999 mls/hr 09/03/23 21:30 09/03/23 21:44 Sod Chlor 0.9% 1000ml Bag IV 09/03/23 22:30 999 mls/hr .Q1H1M EDUARDO Administration Potassium Chloride/Water 100 mls @ 100 mls/hr 09/03/23 21:49 09/04/23 00:04 Potassium Chloride 10meq/100ml Ivpb IV 09/03/23 23:48 100 mls/hr Q1H EDUARDO Administration Sodium Chloride 1,000 mls @ 999 mls/hr 09/03/23 21:51 Sod Chlor 0.9% 1000ml Bag IV 09/03/23 22:51 .Q1H1M ONE Potassium Chloride 40 meq 09/03/23 21:49 09/03/23 21:55 Potassium Chloride 20meq Tab PO 09/03/23 21:50 40 meq ONCE ONE Administration Prochlorperazine Edisylate 10 mg 09/03/23 21:29 09/03/23 21:43 Prochlorperazine 10mg/2ml Vial IV 09/03/23 21:30 10 mg ONCE ONE Administration ORDERS Category Date Time Status CXR --portable [XR chest portable] Stat Exams 09/03/23 21:31 Completed CBC w/Auto Diff [Complete Blood Count Auto Diff] Stat Lab 09/03/23 21:06 Completed CMP [Comprehensive Metabolic Panel] Stat Lab 09/03/23 21:06 Completed MAG [Magnesium] Stat Lab 09/03/23 21:06 Completed Rapid PCR Covid and Flu A/B Stat Lab 09/03/23 21:14 Completed Troponin I Q3H Lab 09/03/23 21:06 Completed Troponin I Q3H Lab 09/04/23 00:45 Ordered EKG Request [ECG Request] Stat Y 09/03/23 21:32 Ordered Medical Decision Narrative: 48-year-old female presents with cough, shortness of breath, headache, flulike illness.. History was obtained via conversation with patient, chart review. On arrival, patient is [afebrile, hemodynamically stable, satting appropriately, alert, oriented x4, GCS 15], moving all extremities spontaneously. Full physical exam performed and significant for clear lungs bilaterally, chest wall tenderness. Differential includes but is not limited to COVID, flu, pneumonia, PE, musculoskeletal chest pain, ACS. Patient was given migraine cocktail including IV medications and monitor fluid bolus for symptomatic management and correction of underlying abnormalities. Workup initiated including CBC CMP mag troponin EKG and COVID flu swab. Patient is PERC negative and does not need D-dimer. On re-evaluation, patient [remains afebrile, HD stable.] Laboratory workup independently interpreted by me and significant for hypokalemia potassium 2.8. Normal magnesium, mild hypocalcemia noted as well. Patient is flu a positive. Initial troponin undetectable. Single troponin is although will be needed.. Imaging independently interpreted by me and significant for left basilar atelectasis.. See radiology read for full review of final results. EKG independently interpreted by me and significant for sinus rhythm, rate of 93, no concerning ST or T wave changes. At 2150 patient was placed in observation status for continued cardiac monitori ng while receiving IV and p.o. potassium repletion given severe hypokalemia. 40 mill equivalents p.o. and 20 meq IV repletion ordered. At this time care handed off to oncoming physician pending potassium repletion. DO Rufino: On my assessment of the patient, she is resting comfortably with reassuring vital signs on cardiac telemetry. Potassium replacement has completed. Patient states that she is feeling better. Given this, feel that she is appropriate for discharge. She already has close follow-up with her primary care provider for chronic hypokalemia. She is already on potassium rep lacement at home as well. I gave her instructions for supportive management of the flu as well as prescriptions for Bromfed and Zofran. She was given strict return precautions and was discharged in stable condition after all questions were answered. ED observation status was ended at 0050 once patient was deemed to be appropriate for discharge. Total observation time was 3 hours. I had a [id number] discussion with the patient in preparation for discharge, and less than 30 minutes was spent in preparation for this discharge. Procedures <Jacky Partida MD - Last Filed: 09/03/23 23:32> Risk/Benefits of Procedure(s) Were Explained: Yes Critical Care <Jacky Partida MD - Last Filed: 09/03/23 23:32> Critical Care Time Critical Care Time: Yes Attestation: On 09/03/23, the high probability of a clinically significant, sudden or life threatening deterioration of the following system(s) cardiac required my full and direct attention, intervention and personal management. The time I documented below is in addition to time spent performing reported procedures but includes the following listed in this critical care notation. Total Time Total Critical Care Time: 36
[2023-09-03 21:02] VITALS: BP 178/99; PULSE 88; RESP 18; TEMP 36.9; O2SAT 95; BMI 45.5
--- NOTE | 2023-09-03 21:31 | XR_ITS ---
PROCEDURE INFORMATION: Exam: XR Chest Exam date and time: 09/03/2023 9:34 PM Age: 48 years old Clinical indication: Shortness of breath; Additional info: SOB, productive cough TECHNIQUE: Imaging protocol: Radiologic exam of the chest. Views: 1 view. COMPARISON: CT ABDOMEN PELVIS W CON 10/30/2022 2:51 PM FINDINGS: Lungs: Left basilar opacity. Pleural spaces: Unremarkable. No pleural effusion. No pneumothorax. Heart/Mediastinum: Unremarkable. No cardiomegaly. Bones/joints: Unremarkable. IMPRESSION: Left basilar infiltration/subsegmental atelectasis.
--- NOTE | 2023-09-03 21:32 | ECG_ITS ---
APPROVED REPORT Exam: Resting ECG HR:93 bpm ECG Measurements Heart Rate 93 AXES MT 166 P 81 QRSd 103 QRS 85 QT 316 T 67 QTc 366 Conclusion SINUS RHYTHM NORMAL ECG UNCONFIRMED REPORT Electronically signed by : Rick Cisse MD 09/04/2023 17:48:34
[2023-09-03 21:34] LABS: Coronavirus 19, PCR Not Detected (NotDetected); Influenza B, PCR Not Detected (NotDetected)
[2023-09-03 21:39] LABS: Basophils # 0.1 K/mm3 (0-0.2); Basophils % 1.8 % (0.1-2.0); Eosinophils % 0.5 % (0.1-12.0); Hematocrit 42.1 % (37.0-47.0); Hemoglobin 14.1 g/dL (12.2-16.2); Lymphocytes # 0.5 K/mm3 (0.7-4.5); Mean Corpuscular HGB Conc 33.6 g/dL (31.8-35.4); Mean Corpuscular Volume 89.4 fl (81-99); Mean Platelet Volume 8.2 fl (7.4-10.4); Monocytes # 0.4 K/mm3 (0.1-1.0); Neutrophils % 75.6 % (37.0-80.0); Platelet Count 199 K/mm3 (142-424); Red Blood Count 4.71 M/mm3 (4.20-5.40); Red Cell Distribution Width 14.9 % (11.5-17.5)
[2023-09-03 21:40] LABS: Chloride 100 mmol/L (98-107); Sodium 134 mmol/L (136-145)
[2023-09-03 21:43] LABS: Alanine Aminotransferase 25 U/L (12-78); Alkaline Phosphatase 88 U/L (38-126); Anion Gap 9.8 mEq/L (5-15); Aspartate Amino Transferase 29 U/L (14-36); Bilirubin,Total 0.4 mg/dl (0.2-1.3); Blood Urea Nitrogen 4 mg/dl (7-17); Carbon Dioxide 27 mmol/L (22.0-30.0); Creatinine Clearance Estimated 111 mL/min (50-200); Estimated Glomerular Filt Rate 133 ml/min (>60); GFR (African American) 161 ML/MIN (>60)
[2023-09-03] MEDS: diphenhydrAMINE 50MG/ML VIAL 25 MG IV (21:43)
[2023-09-03] MEDS: PROCHLORPERAZINE 10MG/2ML VIAL 10 MG IV (21:43)
[2023-09-03 21:44] LABS: Albumin Level 3.7 g/dl (3.5-5.0); Albumin/Globulin Ratio 1.4 (1.1-1.8); Globulin 2.7 g/dL (1.3-3.2); Glucose 103 mg/dl (74-100); Total Protein,Serum 6.4 g/dl (6.3-8.2)
[2023-09-03] MEDS: 0.9 % SODIUM CHLORIDE 1000ML 1,000 ML 999 ML IV (21:44)
[2023-09-03] MEDS: ACETAMINOPHEN 500MG TAB 1000 MG PO (21:44)
[2023-09-03 21:47] LABS: Potassium 2.8 mmoL/L (3.5-5.1)
[2023-09-03] MEDS: POTASSIUM CHLORIDE 20MEQ TAB 40 MEQ PO (21:55)
[2023-09-03] MEDS: KCl 10mEq/100ml 100 ML 100 MEQ IV (21:55)
[2023-09-03 21:57] LABS: Troponin I < 0.01 ng/ml (0.00-0.034)
[2023-09-03 21:58] LABS: Influenza A, PCR Detected (NotDetected)
[2023-09-03 22:01] VITALS: PULSE 89; O2SAT 95
[2023-09-03 22:05] LABS: Magnesium 1.9 mg/dl (1.6-2.3)
[2023-09-03 23:01] VITALS: BP 127/76; PULSE 71; O2SAT 95
[2023-09-03 23:47] VITALS: BP 150/89; PULSE 75; RESP 18; O2SAT 95
[2023-09-04] VITALS: BP 127/96; RESP 20; O2SAT 95
[2023-09-04] MEDS: KCl 10mEq/100ml 100 ML 100 MEQ IV (00:04)
[2023-09-04 00:55] VITALS: BP 124/72; PULSE 72; RESP 18; TEMP 36.9; O2SAT 95
== END 2023-09-04 01:00 | disposition home or self-care (01) ==
PROVIDERS: Emergency Provider Emergency Medicine; PCP Nurse Practitioner Family
DX: J10.1 Influenza due to other identified influenza virus with other respiratory manifestations (principal); E87.6 Hypokalemia; R51.9 Headache, unspecified; E83.51 Hypocalcemia; R06.02 Shortness of breath; R05.9 Cough, unspecified; R07.81 Pleurodynia; F17.200 Nicotine dependence, unspecified, uncomplicated
CPT/HCPCS: 71045; 80053; 83735; 84484; 85025; 87636; 93005; 96361; 96365; 96366; 96375; 99291

== ENCOUNTER 2024-06-07 11:45 | Emergency (ER) | payer MEDICAID, SELFPAY ==
[2024-06-07 12:37] VITALS: BMI 44.0
[2024-06-07 12:40] VITALS: BP 163/66; PULSE 97; RESP 20; TEMP 36.8; O2SAT 96; BMI 44.0
[2024-06-07] MEDS: TET/DIPHTH/PERT-ADULT 0.5ML SYRINGE 0.5 ML IM (12:45)
--- NOTE | 2024-06-07 13:00 | ED_ITS ---
Discharge Plan Disposition Patient Disposition: Home, Self-Care Condition: Good Prescriptions Prescriptions: No Action cetirizine 10 mg tablet 10 mg PO DAILY famotidine 20 mg tablet 20 mg PO DAILY losartan 25 mg tablet 25 mg PO DAILY Patient Comments: TAKE ONE TABLET BY MOUTH EVERY DAY azelastine 137 mcg (0.1 %) spray,non-aerosol 1 spray INTRANASAL DAILY metolazone 10 mg tablet 10 mg PO DAILY Patient Comments: TAKE ONE TABLET BY MOUTH EVERY DAY fluoxetine 20 mg capsule 20 mg PO DAILY Patient Comments: TAKE ONE CAPSULE BY MOUTH EVERY DAY buprenorphine-naloxone 8-2 mg tablet, sublingual 1.5 tab SUBLINGUAL DAILY Patient Comments: Place 1 1/2 tablet under tongue once a day DISSOLVE 1 & 1/2 TABLET UNDER THE TONGUE EVERY DAY Referrals Follow up/Referrals: Aisha Weber [Primary Care Provider] - See instructions Activity Restrictions/Add. Instructions Additional Instructions/Restrictions: Suture instructions: ?You have required stitches today. Please read the following instructions so you know how to care for them: ?1. Keep wound area dry for the first 24 hours. 2?? May clean gently with mild soap and water, after 48 hours to prevent crusting over suture knots. 3. You may shower if your provider gives permission but do not take a bath until the skin is healed.. 4. Never leave a wet dressing or Band-Aid on your stitches as this allows bacteria to reach the area and may cause infection. Band-aids can cause the wound to sweat and not recommended to wear for long periods of time Watch for signs of infection: ? Increasing redness, tenderness or warmth around the suture site ? Unusual swelling around the site ? Appearance of pus around each suture or any red streaks ? Fever If you develop any of the above signs or symptoms of infection, Follow up with Family Physician immediately 5. Suture removal in _7-10___days 6. Return to [facility] or follow up with family doctor for removal. This can be done by any medical provider dur?ing regular hours on Monday through Monday, by appointment. Clinical Impressions Clinical Impression: Laceration Instructions Patient Instructions: DI for Laceration Repair, DI for Laceration Repair -- Simple Print Language Print Language: Portuguese Discharge ED Provider: Beatrice Shrestha [facility] [place] HPI General Stated complaint: [id number] inch Lacertion to R lower leg Mode of Arrival: Ambulatory Source of Information: Patient Limitations: No Limitations Time Seen by Provider: 06/07/24 13:00 Description of Symptoms (Recalled from Triage Doc. by RN): PATIENT C/O LACERATION TO RIGHT LOWER LEG TODAY. SHE STATES HER WAS TOSSING A PIECE OF WOOD AND IT BOUNCED AND THE CORNER OF THE WOOD HIT HER LEG. PATIENT IS UNSURE WHEN HER LAST TDAP WAS HEENT Symptoms (Recalled from RN notes): No Resp Symptoms (Recalled from RN notes): No Skin Symptoms (Recalled from RN notes): Yes MS Symptoms (Recalled from RN notes): No Functional Status (Recalled from RN notes): WNL History of Present Illness Provider Complaint: Patient states she was helping her significant other move some wood and he tossed a small piece of wood and it bounced and corner hit her in the right lower leg causing laceration, state that she takes a daily aspirin so they wrapped a towel around it tight to help with bleeding Related Data Home Medications ?Medication ?Instructions ?Recorded ?Confirmed azelastine 137 mcg (0.1 %) nasal 1 spray intranasal DAILY 06/07/24 06/07/24 spray buprenorphine 8 mg-naloxone 2 mg 1.5 tab sublingual DAILY 06/07/24 06/07/24 sublingual tablet cetirizine 10 mg tablet 10 mg PO DAILY 06/07/24 06/07/24 famotidine 20 mg tablet 20 mg PO DAILY 06/07/24 06/07/24 fluoxetine 20 mg capsule 20 mg PO DAILY 06/07/24 06/07/24 losartan 25 mg tablet 25 mg PO DAILY 06/07/24 06/07/24 metolazone 10 mg tablet 10 mg PO DAILY 06/07/24 06/07/24 Allergies Allergy/AdvReac Type Severity Reaction Status Date / Time duloxetine [From Cymbalta] Allergy Verified 09/03/23 21:23 Worker's Comp Is this a Worker's Comp case?: No [facility] Disclaimer: The information contained in this section may have been updated after the patient was seen, as this information can be updated by other users. Social History Smoking Status: Current every day smoker alcohol intake: never current occupational status: other Travel in the last 8 weeks: None ROS Obtained: Yes All systems reviewed & no additional complaints except as documented and Yes Systems reviewed as appropriate & no additional complaints except as documented Constitutional Constitutional: Reports system reviewed and no additional complaints, except as documented and Reports as per HPI ENT Ears, Nose, Mouth, and Throat: Reports system reviewed and no additional complaints, except as documented and Reports as per HPI Cardiovascular Cardiovascular: Reports system reviewed and no additional complaints, except as documented and Reports as per HPI Respiratory Respiratory: Reports system reviewed and no additional complaints, except as documented and Reports as per HPI Integumentary/Breasts Skin/Breast: Reports system reviewed and no additional complaints, except as documented, Reports as per HPI and Reports other (laceration to right lower leg) Physical Exam General General appearance: alert and in no apparent distress ENT ENT exam: Present mucous membranes moist Respiratory Respiratory exam: Present normal lung sounds bilaterally; Absent respiratory distress or wheezes Cardiovascular Cardiovascular exam: Present regular rate, normal rhythm and normal heart sounds Expanded Lower Extremity Exam Right: Leg image: 2 1. laceration noted no active bleeding Lower leg exam: Present laceration Ankle exam: Present normal inspection Foot/toe exam: Present normal inspection Neurological Exam Neurological exam: Present alert, oriented X3 and normal gait Medical Decision Making Medical Records Screening: Per USPSTF and CDC recommendations, given the prevalence of disease in our region, it is our hospital?s policy to screen for HIV and viral Hepatitis for all patients aged 18 and over and those with ongoing risk factors. Jarad Inquiry Pt receiving controlled substance: No Jarad was queried for this patient: No Vital Signs: 06/07/24 12:40 Temperature 98.2 F Temperature Source Oral Pulse Rate [Left Brachial] 97 H Respiratory Rate 20 Blood Pressure [Left Arm] 163/66 H Blood Pressure Mean [Left Arm] 98 Blood Pressure Source [Left Arm] Automatic Cuff Blood Pressure Position [Left Arm] Sitting 02 Sat by Pulse Oximetry 96 Oxygen Delivery Method Room Air Orders (Tests/Meds): ED MEDICATIONS Discontinued Medications Generic Name Dose Route Start Last Admin Trade Name Freq PRN Reason Stop Dose Admin Tetanus/Reduced Diphtheria/Acell Pertussis 0.5 ml 06/07/24 12:37 06/07/24 12:45 Tet/Diphth/Pert-Adult 0.5ml Syringe IM 06/07/24 12:38 0.5 ml .ONCE ONE Administration Procedures Laceration Laceration 1: Site: lower extremity Side (If applicable): right Size (cm): 2 Description: linear Depth: simple, single layer Local Anesthetic: lidocaine 1% Amount of anesthesia used (mL): 1 Pre-repair: wound explored and irrigated extensively Skin layer closed with: nylon Size (cm): 4-0 Number of sutures: 7 Technique: simple, interrupted (wound edges approximated well)
[2024-06-07] MEDS: LIDOCAINE 1% PF 2ML AMPULE 2 ML SQ (13:39)
[2024-06-07 13:42] VITALS: BP 163/66; PULSE 97; RESP 20; TEMP 36.8; O2SAT 96
--- NOTE | 2024-06-07 13:45 | PC.NURSE ---
DRY NON-STICK DRESSING APPLIED TO SUTURED AREA AT THIS TIME
== END 2024-06-07 13:45 | disposition home or self-care (01) ==
PROVIDERS: Emergency Provider Nurse Practitioner; PCP Nurse Practitioner Family
DX: S81.811A Laceration without foreign body, right lower leg, initial encounter (principal); W22.8XXA Striking against or struck by other objects, initial encounter
CPT/HCPCS: 12002; 90715; 99213; G0381

== ENCOUNTER 2024-06-14 15:40 | Emergency (ER) | payer MEDICAID, SELFPAY ==
[2024-06-14 15:49] VITALS: BP 129/75; PULSE 86; RESP 20; TEMP 36.8; O2SAT 97; BMI 44.6
[2024-06-14 15:52] VITALS: BP 129/75; PULSE 86; RESP 20; TEMP 36.8
== END 2024-06-14 15:53 | disposition home or self-care (01) ==
PROVIDERS: Emergency Provider Nurse Practitioner Family; PCP Nurse Practitioner Family
DX: Z48.02 Encounter for removal of sutures (principal)
CPT/HCPCS: 99211; G0380

== ENCOUNTER 2024-06-17 16:18 | Emergency (ER) | payer MEDICAID, SELFPAY ==
[2024-06-17 17:40] VITALS: BP 143/78; PULSE 78; RESP 19; TEMP 36.9; O2SAT 98; BMI 48.1
[2024-06-17 17:50] VITALS: BP 143/78; PULSE 78; RESP 19; TEMP 36.9; O2SAT 98
== END 2024-06-17 17:53 | disposition home or self-care (01) ==
LOC: UTC 16:21
PROVIDERS: Emergency Provider Nurse Practitioner; PCP Nurse Practitioner Family
DX: Z48.02 Encounter for removal of sutures (principal)
CPT/HCPCS: 99211; G0380

== ENCOUNTER 2025-08-06 07:40 | Outpatient (CLI) | payer MEDICAID, SELFPAY ==
--- NOTE | 2025-08-06 | CA_ITS ---
APPROVED REPORT EXAM: Comprehensive 2D, Doppler, and color-flow Echocardiogram Data Virtualization Consultant: JAMES Sue, RVS Ht: 5 ft 2 in Wt: 240lbs BSA: 2.07 BP: 163/66 mmHg Indications: CP, HTN, Smoker 2D Dimensions Left Atrium 3.54 cm F: 2.7 - 3.8 LA Volume 69.70 mL LA Volume Index [id number] mL/m2 (M/F) 16-34 M-Mode Dimensions RVDd 1.97 cm (0.9-2.6) LA Diam 4.08 cm (1.9-4.0) LVDd 5.59 cm (3.5-5.7) LVDs 3.58 cm (3.5-5.7) IVSd 1.01 cm (0.6-1.1) PWd 1.01 cm (0.6-1.1) EF (Teich) 64.90% EPSs 0.57 cm FS 36.00% EDV (Teich) 153.00 mL TAPSE 2.77 (<1.7) ESV (Teich) 53.70 mL LV Diastology E Decel Time 203 (160-240 msec) E/A Ratio 1.04 MED A' 13.90 cm/s LAT A' 14.00 cm/s Aortic Valve AoV Peak Bakari. 171.0 (50-130 cm/s) AO Peak GR. 11.70 mmHg AO Mean GR. 5.80 (<5 mmHg) AO VTI 38.1 (18-25 cm) Mitral Valve MV A Velocity 101.0 (40-130 cm/s) E/A Ratio 1.04 Left Ventricle The left ventricle is normal size. Left ventricular systolic function is normal. The left ventricular ejection fraction is within the normal range. There is normal left ventricular wall thickness. There is normal LV segmental wall motion. The left ventricular diastolic function is normal. LVEF is 55% Right Ventricle The right ventricle is normal size. The right ventricular systolic function is normal. Atria The left atrium size is normal. The right atrium size is normal. There is no color Doppler evidence of interatrial shunt. Aortic Valve The aortic valve opens well. There is no hemodynamically significant aortic valvular stenosis. No aortic regurgitation is present. Mitral Valve The mitral valve is normal in structure. No evidence of mitral valve stenosis. Trace mitral regurgitation is present. Tricuspid Valve The tricuspid valve leaflets are thin and pliable. Mild tricuspid regurgitation. RVSP 20-25 mmHg. Pulmonic Valve The pulmonary valve is grossly normal in structure. Trace pulmonic valve regurgitation is present. Great Vessels The aortic root is normal in size. IVC is normal in size and collapses >50% with inspiration. Pericardium There is no pericardial effusion. Other Information Study Quality: Fair Conclusion Normal biventricular systolic function. Mild TR. Electronically signed by : Manda Stanley MD 08/17/2025 15:25:15
== END 2025-08-06 23:59 | disposition home or self-care (01) ==
LOC: RT 07:41
PROVIDERS: PCP Nurse Practitioner Family; Visit Provider Nurse Practitioner Family
DX: R07.9 Chest pain, unspecified (principal)
CPT/HCPCS: 93306